=== PATIENT | male | born 1930 | race Caucasian/White ===

== ENCOUNTER 2018-08-27 09:55 | Inpatient (IN) | payer OTHER ==
[~2018-08-27] VITALS: Ht 165.1 cm; Wt 73.0 kg
[~2018-08-27 09:55] MED LIST: TAMS-11 PO
[2018-08-27 10:17] VITALS: BP_SYST 157
[2018-08-27] MEDS ORDERED: NACL 0.9% 1,000 ML IV ONE (11:53)
[2018-08-27 12:22] LABS: EOSINOPHILS % (AUTO) 0.1 % (0.0-4.0); HEMOGLOBIN 15.6 g/dL (14.0-18.0)
[2018-08-27 12:27] LABS: BASOPHILS # (AUTO) 0.1 K/uL (0.0-0.2); BASOPHILS % (AUTO) 0.9 % (0.0-2.0); HEMATOCRIT 46.9 % (36-54); LYMPHOCYTES # (AUTO) 0.9 K/uL (1.0-5.5); LYMPHOCYTES % (AUTO) 8.2 % (20.5-51.5); MEAN CORPUSCULAR HEMOGLOBIN 31 pg (27-31); MEAN CORPUSCULAR HGB CONC 33 % (32-36); MEAN CORPUSCULAR VOLUME 92 fL (79.0-98.0); MONOCYTES # (AUTO) 0.8 K/uL (0.0-1.0); MONOCYTES % (AUTO) 7.1 % (1.7-9.3); NEUTROPHILS % (AUTO) 83.7 % (40.0-70.0); PLATELET COUNT (AUTO) 200 K/uL (130-430); RED CELL DISTRIBUTION WIDTH 13.5 % (9.0-15.0); WHITE BLOOD COUNT (AUTO) 10.8 K/uL (4.8-10.8)
[2018-08-27 12:30] LABS: ANION GAP 9 (5-15); CALCIUM 9.4 mg/dL (8.4-11.0); CHLORIDE 101 mmol/L (98-107); CREATININE 0.76 mg/dL (0.55-1.30); GLUCOSE 118 mg/dL (70-99); POTASSIUM 3.8 mmol/L (3.5-5.1); SODIUM SERUM 135 mmol/L (136-145); UREA NITROGEN, BLOOD 9 mg/dL (8-21)
[2018-08-27 12:34] LABS: ALANINE AMINOTRANSFERASE 23 U/L (12-78); ALBUMIN 4.1 g/dL (3.4-4.8); ASPARTATE AMINOTRANSFERASE 16 U/L (10-37); LIPASE 123 U/L (73-393); TOTAL BILIRUBIN 0.8 mg/dL (0.0-1.0)
[2018-08-27 13:36] LABS: BILIRUBIN,URINE NEGATIVE (NEGATIVE); BLOOD, URINE NEGATIVE (NEGATIVE); CLARITY/URINE CLEAR (CLEAR); COLOR,URINE YELLOW (YELLOW); GLUCOSE,URINE NEGATIVE (NEGATIVE); KETONES,URINE NEGATIVE (NEGATIVE); LEUKOCYTE ESTERASE ,URINE NEGATIVE (NEGATIVE); NITRITE, URINE NEGATIVE (NEGATIVE); PH,URINE 6.5 (5.0-8.0); PROTEIN URINE NEGATIVE (NEGATIVE); UROBILINOGEN,URINE 0.2 (0.2-1.0)
[2018-08-27 14:10] VITALS: BP_SYST 152
[2018-08-27] MEDS ORDERED: ACETAMINOPHEN 325 MG TABLET PO PRN (15:45)
[2018-08-27] MEDS ORDERED: MORPHINE 4 MG/ML INJ. SYRINGE IVP PRN (15:45)
[2018-08-27] MEDS ORDERED: MORPHINE 2 MG/ML INJ. SYRINGE IVP PRN (15:45)
[2018-08-27 16:19] VITALS: BP_SYST 123
[2018-08-27] MEDS: D5NS 1,000 ML IV SCH (18:46)
[2018-08-27 20:07] VITALS: BP_SYST 132
[2018-08-27] MEDS: ONDANSETRON HCL 4 MG/2 ML VIAL IVP PRN (21:00)
[2018-08-28] MEDS: D5NS 1,000 ML IV SCH ×3 (00:31→16:21)
[2018-08-28 02:17] VITALS: BP_SYST 125
[2018-08-28 06:16] LABS: BASOPHILS % (AUTO) 0.3 % (0.0-2.0); EOSINOPHILS % (AUTO) 0.2 % (0.0-4.0); LYMPHOCYTES # (AUTO) 1.3 K/uL (1.0-5.5); LYMPHOCYTES % (AUTO) 9.9 % (20.5-51.5); MEAN CORPUSCULAR HEMOGLOBIN 31 pg (27-31); MEAN CORPUSCULAR HGB CONC 32 % (32-36); MEAN CORPUSCULAR VOLUME 94 fL (79.0-98.0); MONOCYTES # (AUTO) 1.6 K/uL (0.0-1.0); MONOCYTES % (AUTO) 12.7 % (1.7-9.3); NEUTROPHILS # (AUTO) 9.8 K/uL (1.8-7.7); PLATELET COUNT (AUTO) 180 K/uL (130-430); RED BLOOD CELL COUNT(AUTO) 4.56 MIL/uL (4.2-6.2); RED CELL DISTRIBUTION WIDTH 13.3 % (9.0-15.0); WHITE BLOOD COUNT (AUTO) 12.7 K/uL (4.8-10.8)
[2018-08-28 06:35] LABS: INR 1.1 (0.80-1.20); PROTHROMBIN TIME 10.8 SECS (9.5-12.5)
[2018-08-28 07:16] LABS: ALANINE AMINOTRANSFERASE 21 U/L (12-78); ALBUMIN 3.1 g/dL (3.4-4.8); ANION GAP 8 (5-15); ASPARTATE AMINOTRANSFERASE 17 U/L (10-37); CALCIUM 8.7 mg/dL (8.4-11.0); CHLORIDE 103 mmol/L (98-107); CHOLESTEROL 151 mg/dL (<200); CREATININE 0.86 mg/dL (0.55-1.30); GLUCOSE 121 mg/dL (70-99); HDL CHOLESTEROL 69 mg/dL (>45); LDL CHOLESTEROL 81 mg/dL (<100); LIPASE 84 U/L (73-393); POTASSIUM 3.5 mmol/L (3.5-5.1); SODIUM SERUM 135 mmol/L (136-145); THYROID STIMULATING HORMONE 0.44 uIu/mL (0.34-4.82); TOTAL BILIRUBIN 1.3 mg/dL (0.0-1.0); TRIGLYCERIDES 45 mg/dL (30-150); UREA NITROGEN, BLOOD 8 mg/dL (8-21)
[2018-08-28 07:56] VITALS: BP_SYST 133
[2018-08-28 10:59] LABS: NEUTROPHILS % (AUTO) 76.9 % (40.0-70.0)
[2018-08-28 11:13] VITALS: BP_SYST 101
[2018-08-28 16:05] VITALS: BP_SYST 112
[2018-08-28] MEDS: ONDANSETRON HCL 4 MG/2 ML VIAL IVP PRN (16:26)
[2018-08-28 19:59] VITALS: BP_SYST 118
[2018-08-29 00:29] VITALS: BP_SYST 92
[2018-08-29] MEDS: D5NS 1,000 ML IV SCH ×3 (00:39→15:37)
[2018-08-29 08:20] VITALS: BP_SYST 130
[2018-08-29] MEDS ORDERED: BISACODYL 10 MG/SUPPOSITORY RC ONE (10:45)
[2018-08-29 11:50] LABS: BASOPHILS # (AUTO) 0.2 K/uL (0.0-0.2); EOSINOPHILS # (AUTO) 0.1 K/uL (0.0-0.4); LYMPHOCYTES # (AUTO) 1.1 K/uL (1.0-5.5); RED CELL DISTRIBUTION WIDTH 13.3 % (9.0-15.0); WHITE BLOOD COUNT (AUTO) 12.1 K/uL (4.8-10.8)
[2018-08-29 11:55] LABS: BASOPHILS % (AUTO) 1.3 % (0.0-2.0); EOSINOPHILS % (AUTO) 0.9 % (0.0-4.0); HEMATOCRIT 37.9 % (36-54); HEMOGLOBIN 12.7 g/dL (14.0-18.0); MEAN CORPUSCULAR HEMOGLOBIN 31 pg (27-31); MEAN CORPUSCULAR HGB CONC 33 % (32-36); MEAN CORPUSCULAR VOLUME 94 fL (79.0-98.0); MONOCYTES # (AUTO) 1.2 K/uL (0.0-1.0); MONOCYTES % (AUTO) 10.3 % (1.7-9.3); NEUTROPHILS # (AUTO) 9.5 K/uL (1.8-7.7); NEUTROPHILS % (AUTO) 78.5 % (40.0-70.0); PLATELET COUNT (AUTO) 144 K/uL (130-430); RED BLOOD CELL COUNT(AUTO) 4.03 MIL/uL (4.2-6.2)
[2018-08-29 11:58] LABS: ANION GAP 9 (5-15); CALCIUM 8.2 mg/dL (8.4-11.0); CHLORIDE 106 mmol/L (98-107); CREATININE 0.81 mg/dL (0.55-1.30); GLUCOSE 164 mg/dL (70-99); POTASSIUM 3.3 mmol/L (3.5-5.1); SODIUM SERUM 137 mmol/L (136-145); UREA NITROGEN, BLOOD 6 mg/dL (8-21)
[2018-08-29 12:03] LABS: ALANINE AMINOTRANSFERASE 18 U/L (12-78); ALBUMIN 2.5 g/dL (3.4-4.8); ASPARTATE AMINOTRANSFERASE 18 U/L (10-37); TOTAL BILIRUBIN 1.1 mg/dL (0.0-1.0)
[2018-08-29 12:42] VITALS: BP_SYST 125
[2018-08-29 14:55] VITALS: BP_SYST 134
[2018-08-29 17:07] VITALS: BP_SYST 134
== END 2018-08-29 17:07 | disposition home or self-care (01) | DRG 445 ==
LOC: SED 09:55 → SMU 13:36 → STU 13:55
PROVIDERS: ADMIT Internal Medicine Hospice and Palliative Medicine; ATTEND Internal Medicine Hospice and Palliative Medicine
DX: K80.01 Calculus of gallbladder with acute cholecystitis with obstruction (principal); K40.00 Bilateral inguinal hernia, with obstruction, without gangrene, not specified as recurrent; I42.9 Cardiomyopathy, unspecified; E11.9 Type 2 diabetes mellitus without complications; N40.0 Benign prostatic hyperplasia without lower urinary tract symptoms; I10 Essential (primary) hypertension; Z79.899 Other long term (current) drug therapy; Z87.891 Personal history of nicotine dependence
CPT/HCPCS: 36415; 76700-TC; 78226; 80053; 80061; 81003; 83690-TC; 83735-TC; 84443-TC; 85025; 85610-TC; 93005; 93306; 99285; A9537; J2270; J2405; J7030; J7042